=== PATIENT | female | born 1940 | race Caucasian/White ===

== ENCOUNTER → 2016-11-14 | Outpatient (CLI) | payer OTHER, MEDICARE ==
[~2016-11-14] MED LIST: ALBU1AER9 INH; ALBUTEROL INHALER; ASPI81TA28 PO; CARV3.122 PO; CYAN1LOZ; FLAXOIL2 PO; FRS/40 PO; GLUC10007 PO; HMLI SC; LEVO150T22 PO; LISI-729 PO; METF-384 PO; MONT1TAB5 PO; OMEG10007 PO; POTA-335 PO; PRM/45 PO; PYRI100T4 PO; VITA400C15 PO
[2016-11-14 10:12] LABS: ALT/SGPT 19 U/L (12-78); BLOOD UREA NITROGEN 14 mg/dl (7-18); BUN/CREATININE RATIO 20.6 (10-20); CALCIUM 9.3 mg/dl (8.5-10.1); CARBON DIOXIDE 27 mmol/L (21-32); CHLORIDE 105 mmol/L (98-107); CHOLESTEROL 221 mg/dl (0-200); GLUCOSE 145 mg/dl (70-99); SODIUM 141 mmol/L (136-145)
[2016-11-14 10:18] LABS: ESTIMATED AVERAGE GLUCOSE 151 mg/dl; HA1C FLAG Normal (Normal)
[2016-11-14 10:23] LABS: HDL CHOLESTEROL 55 mg/dl; LDL CHOLESTEROL CALCULATED 132 mg/dl; TRIGLYCERIDES 171 mg/dl (0-150); VERY LOW DENSITY LIPOPROT CALC 34 mg/dl
== END | disposition home or self-care (01) ==
LOC: C.LAB1850 09:05
PROVIDERS: ATTEND Family Medicine
DX: E11.9 Type 2 diabetes mellitus without complications (principal); E03.9 Hypothyroidism, unspecified; I10 Essential (primary) hypertension

== ENCOUNTER → 2017-09-16 | Outpatient (CLI) | payer OTHER, MEDICARE ==
[2017-09-16 13:44] LABS: HEMOGLOBIN A1C 7.8 % (4.5-5.6)
[2017-09-16 14:00] LABS: ALT/SGPT 21 U/L (12-78); BLOOD UREA NITROGEN 11 mg/dl (7-18); CALCIUM 8.8 mg/dl (8.5-10.1); CARBON DIOXIDE 28 mmol/L (21-32); GLUCOSE 167 mg/dl (70-99); SODIUM 139 mmol/L (136-145)
[2017-09-16 14:10] LABS: CHOLESTEROL 225 mg/dl (0-200); LDL CHOLESTEROL CALCULATED 141 mg/dl
== END | disposition home or self-care (01) ==
LOC: C.LABPBG 08:24
PROVIDERS: ATTEND Family Medicine
DX: E11.9 Type 2 diabetes mellitus without complications (principal); E03.9 Hypothyroidism, unspecified; I10 Essential (primary) hypertension

== ENCOUNTER → 2017-11-26 | Outpatient (CLI) | payer OTHER, MEDICARE ==
[~2017-11-26] MED LIST changes: +ACET500T58 PO; -ALBU1AER9 INH; -ALBUTEROL INHALER; -CARV3.122 PO; +CMD5 PO; +CYAN100020 PO; -CYAN1LOZ; +DILT-115 PO; +FLAX1CAP11 PO; -FLAXOIL2 PO; -GLUC10007 PO; -HMLI SC; +INSU100I SQ; -LEVO150T22 PO; +LEVO75TA PO; -LISI-729 PO; +MAGNESIUM ZINC; +MCRK20 PO; -MONT1TAB5 PO; +MULT-190 PO; +ONDA4TAB65 PO; -POTA-335 PO; -PRM/45 PO; +PROAIR HFA INH; -PYRI100T4 PO; -VITA400C15 PO; +XLTOPS OPB
[2017-11-26 16:08] LABS: BASO % 0.3 %; BASO ABS # 0.02 K/uL (0-0.2); EOS % 1.3 %; IG# 0.01 K/uL (0.00-0.02); LYMPH % 26.2 %; LYMPH ABS # 1.96 K/uL (1.2-3.4); MEAN CELL VOLUME 91.5 fL (80-100); MEAN CORPUSCULAR HGB CONC 31.7 g/dl (32-36); MEAN PLATELET VOLUME 11.2 fL (7.4-10.4); MONO % 7.8 %; MONO ABS # 0.58 K/uL (0.11-0.59); NEUT % 64.3 %; NEUT ABS # 4.81 K/uL (1.4-6.5); PLATELET COUNT 250 K/uL (130-400); RED CELL DISTRIBUTION WIDTH CV 13.9 % (11.5-14.5); RED CELL DISTRIBUTION WIDTH SD 46.4 fL (36.4-46.3); WHITE BLOOD COUNT 7.48 K/uL (4.8-10.8)
[2017-11-26 16:50] LABS: BLOOD UREA NITROGEN 14 mg/dl (7-18); CALCIUM 9.1 mg/dl (8.5-10.1); CARBON DIOXIDE 26 mmol/L (21-32); CREATININE 0.87 mg/dl (0.60-1.20); GLUCOSE 123 mg/dl (70-99); POTASSIUM 4.1 mmol/L (3.5-5.1); SODIUM 138 mmol/L (136-145)
== END | disposition home or self-care (01) ==
LOC: C.LABSPEC 14:36
PROVIDERS: ATTEND Nurse Practitioner Family
DX: E11.9 Type 2 diabetes mellitus without complications (principal); E83.42 Hypomagnesemia; E87.6 Hypokalemia; I48.91 Unspecified atrial fibrillation; E03.9 Hypothyroidism, unspecified

== ENCOUNTER 2017-12-19 08:18 | Observation (INO) | payer OTHER, MEDICARE ==
[~2017-12-19] VITALS: Ht 160 cm; Wt 91.8 kg
[2017-12-19] VITALS (9 sets, daily range): BP systolic 113–140; BP diastolic 68–89; PULSE 78–126; TEMP 36.4–36.7; O2SAT 95–97; Ht 160 cm; Wt 91.8 kg
[2017-12-19] MEDS ORDERED: APIX1TAB3 PO (10:51)
[2017-12-19] MEDS ORDERED: premarin PO (10:51)
[2017-12-19] MEDS ORDERED: ACETAMINOPHEN 325 MG TAB PO PRN (12:00)
[2017-12-19] MEDS ORDERED: ALUMINUM/MAGNESIUM/SIMETH (MAALOX MAX) 30 ML UDC PO PRN (12:00)
[2017-12-19] MEDS ORDERED: POLYETHYLENE (MIRALAX) 17 GM PACK PO PRN (12:00)
[2017-12-19] MEDS ORDERED: NITROGLYCERIN 0.4 MG SL PER TAB CHARGE SL PRN (12:00)
[2017-12-19] MEDS ORDERED: MAGNESIUM HYDROXIDE SUSP 30 ML UDC PO PRN (12:00)
[2017-12-19] MEDS ORDERED: MoRPHine SULFATE 2 MG/ML CARP IV PRN (12:00)
[2017-12-19] MEDS ORDERED: DILTIAZEM BOLUS / DRIP IV STA (12:15)
[2017-12-19] MEDS ORDERED: ONDANSETRON 4 MG TAB PO PRN (12:15)
[2017-12-19] MEDS ORDERED: ACETAMINOPHEN 500 MG TAB PO PRN (12:15)
[2017-12-19] MEDS ORDERED: DILTIAZEM HCL INJ 125 MG in DEXTROSE 5% 100ML IV PRN (12:30)
[2017-12-19] MEDS ORDERED: ALBUTEROL HFA 8 GM INHALER INH PRN (13:00)
[2017-12-19] MEDS: MAGNESIUM SULFATE 1GM / D5W 100 ML IV SCH ×2 (13:14→14:25)
[2017-12-19] MEDS: APIXABAN 5 MG TAB PO SCH ×2 (13:20→20:28)
[2017-12-19] MEDS: LEVOTHYROXINE 75 MCG TAB PO SCH (13:21)
[2017-12-19] MEDS: FUROSEMIDE 40 MG TAB PO SCH (13:21)
[2017-12-19] MEDS ORDERED: IV FLUIDS COMPLETED PRN (14:45)
--- NOTE | 2017-12-19 15:13 | History and Physical ---
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 She reports eating supper last night 12/18 and becoming very nauseous and having heart palpitations and feeling chest tightness. She describes it as being enought to stop her from finishing her meal and head to bed. She describes the symptoms as being almost identical to her previous RVR episodes. She was unable to sleep and presented to [facility] at 6 am. She was started on diltiazem drip had a troponin drawn which was negative and was transferred direct admission to [facility]. She is currently feeling well and her rate is staying between 90-120. She is here with her daughter. She has no complaints, but is scheduled for a cardioversion later this week. She is curious as to whether that can be done while she's inpatient. Past Medical/Surgical History Medical Problems: (1) Atrial fibrillation with RVR (2) Diabetes (3) Hypertension Surgical Problems: (1) Heart valve replaced (2) Heart valve replaced Social History Smoking Status: Never Smoker Drug Use: none Occupational Status: retired Immunizations History of Influenza Vaccine: Unknown History of Tetanus Vaccine?: Unknown History of Pneumococcal: Unknown History of Hepatitis B Vaccine: Unknown Allergies Coded Allergies: Meperidine (Verified Allergy, Unknown, UNKNOWN, 01/16/15) Moxifloxacin (Unverified Allergy, Unknown, SHORTNESS OF BREATH, 07/14/09) Atorvastatin (Verified Adverse Reaction, Severe, other, 11/09/17) muscle pain and weakness Metoprolol (Unverified Adverse Reaction, Intermediate, other, 11/09/17) "feels extremely weak and sick" Home Medications Scheduled Apixaban (Eliquis), 5 MG PO BID Cyanocobalamin (Vitamin B12), 1 TAB PO DAILY Diltiazem Hcl Ext Rel (Tiazac), 360 MG PO DAILY Fish Oil (Ethel-3), 1 CAP PO DAILY Flaxseed (Linseed) (Flax Seed Oil), 1 CAP PO DAILY Furosemide (Lasix), 40 MG PO DAILY Insulin Lispro (Human) (Humalog), UNITS SQ AC Latanoprost (Latanoprost), 1 DROP OPB HS Levothyroxine Sodium (Synthroid), 75 MCG PO DAILY Metformin Hcl (Glucophage), 1,000 MG PO BID Ocuvite Preservision (Ocuvite Preservision), 1 TAB PO DAILY Potassium Chloride (Klor-Con M20), 20 MEQ PO BID [premarin], 1 TAB PO DAILY Scheduled PRN Acetaminophen (Acetaminophen), 2 TAB PO Q6 PRN for Pain Ondansetron Hcl (Zofran), 4 MG PO TID PRN for Nausea [Proair Hfa], 2 PUFFS INH Q4 PRN for SOB/Wheezing Miscellaneous Medications [magnesium zinc] Review of Systems Constitutional: No fever, No chills, No sweats, No weight loss, No weakness, No fatigue Respiratory: + shortness of breath, + dyspnea on exertion, + dyspnea at rest, No cough, No sputum, No wheezing Cardiovascular: + chest pain, + orthopnea, + palpitations Abdomen: + nausea Musculoskeletal: No joint pain, No muscle pain, No swelling, No calf pain, No problem reported Resident Involvement: Resident Care Provided Care Provided: Adult [facility] Medicine Physical Exam Vital Signs Date Time Temp Pulse Resp B/P (MAP) Pulse Ox O2 Delivery O2 Flow Rate FiO2 12/19/17 11:21 36.5 98 20 122/76 (91) 95 Room Air 12/19/17 10:30 36.4 95 18 140/77 96 Room Air 12/19/17 10:24 90 20 133/89 (104) 97 Room Air General Appearance: WD/WN, no apparent distress Head: normocephalic, atraumatic Eyes: normal inspection, EOMI, sclerae normal Neck: supple, thyroid normal, no JVD, no carotid bruits, trachea midline Respiratory/Chest: chest non-tender, lungs clear, normal breath sounds, no respiratory distress, no accessory muscle use Cardiovascular: no edema, no gallop, no JVD, normal peripheral pulses, + tachycardia, + systolic murmur, + irregularly irregular, + abnormal rate, + abnormal rhythm Abdomen/GI: normal bowel sounds, non tender, soft, no organomegaly Extremities/Musculoskelatal: no calf tenderness, no pedal edema, non-tender Neurologic/Psych: recovery collector II-XII nml as tested, no motor/sensory deficits, alert, normal mood/affect, normal reflexes, oriented x 3 Diagnostics Laboratory Results Results Past 24 Hours Test 12/19/17 10:24 12/19/17 12:34 Range/Units Bedside Glucose 141 70-90 mg/dl Pro-B-Type Natriuretic Peptide 1472 0-1800 pg/ml CXR normal EKG Atrial Fibrillation RVR Impression Assessment and Plan Atrial Fibrillation -IV Diltiazem drip titrating up. -Will convert to oral dose of 360 mg/ day -Considering adding Beta stanley to improve rate control, patient has had three episodes of symptomatic RVR since diagnosis in October -Continuing home eliquis for anticoagulation Hypothyroidism -Continuing home synthroid Hypo magnesemia -4.2 today magnesium oxide tablets given' DVT PPx -On Eliquis Dispo -Plan to D/C tomorrow Advanced Directives Existing Living Will: Yes Existing Power of Bingo Worker: Yes Resuscitation Status VTE Prophylaxis Will order VTE Prophylaxis: No Reason for no VTE drug order: Treatment not indicated Reason no Mechanical VTE Order: Treatment not indicated Note Total Time: Critical Care > 74 minutes Resident Tracking Resident Involvement: Resident Care Provided Care Provided: Adult Hospital Medicine Assessment/Plan Resident Physician Supervision Note: I was present with Dr. Dean during the history and exam. I discussed the case with the resident and agree with the findings and plan as documented in the note. Any exceptions or clarifications are listed here: Pt is a 77 y/o female with extensive medical history including atrial fibrillation, DMII transferred from [place] ED for AF with RVR. Patient reports at present that she is feeling much better - the palpitations she had overnight have resolved, though she is still feeling somewhat tired. She states she is scheduled for outpatient cardioversion with Dr. Spivey this coming week. She endorses no apparent events which would have triggered this arrhythmia and is tolerating the dilt drip and HR in the 90-100s well. On examination, S1/S2 nl IRR/IRR mildly tachycardic. CTAB. Abd NT/ND BS +ve. Trace b/l LE edema. CNII-XII grossly intact. No apparent rashes or lesions. Atrial fibrillation w/ RVR - adjust diltiazem drip to HR in 80s and convert to PO diltiazem likely this evening. Can potentially add metoprolol for further ctrl. DMII - holding home metformin - ISS w/ FSBS. Can add basal if needed.
[2017-12-19] MEDS: DILTIAZEM HCL 180 MG ER CAP PO SCH (20:27)
[2017-12-19] MEDS: MAGNESIUM OXIDE 400 MG TAB PO SCH (20:27)
[2017-12-19] MEDS: POTASSIUM CHLORIDE 20 MEQ TABCR PO SCH (20:28)
[2017-12-19] MEDS ORDERED: LATANOPROST 0.005% OP SOLN 2.5 ML BTL OPB SCH (21:00)
[2017-12-20 03:42] VITALS: BP 114/75; PULSE 75; TEMP 36.5; O2SAT 96
[2017-12-20] MEDS: LEVOTHYROXINE 75 MCG TAB PO SCH (06:12)
[2017-12-20] MEDS: MAGNESIUM OXIDE 400 MG TAB PO SCH (07:56)
[2017-12-20] MEDS: FUROSEMIDE 40 MG TAB PO SCH (07:57)
[2017-12-20] MEDS: APIXABAN 5 MG TAB PO SCH (07:57)
[2017-12-20] MEDS: POTASSIUM CHLORIDE 20 MEQ TABCR PO SCH (07:57)
[2017-12-20] MEDS: DILTIAZEM HCL 180 MG ER CAP PO SCH (07:58)
[2017-12-20 07:59] VITALS: BP 119/66; PULSE 86; TEMP 36.8; O2SAT 97
[2017-12-20 08:08] LABS: CALCIUM 8.5 mg/dl (8.5-10.1); CREATININE 0.75 mg/dl (0.60-1.20); POTASSIUM 3.5 mmol/L (3.5-5.1)
[2017-12-20] MEDS ORDERED: DILTIAZEM HCL 180 MG ER CAP PO SCH (09:00)
[2017-12-20] MEDS ORDERED: CEROVITE ADV FORMULA TAB PO SCH (09:00)
[2017-12-20] MEDS ORDERED: FLAXSEED PO SCH (09:00)
[2017-12-20] MEDS ORDERED: ESTRADIOL 1 MG TAB PO SCH (09:00)
--- NOTE | 2017-12-20 11:19 | Discharge Instructions ---
Discharge Instructions Date of Service Dec 20, 2017. Admission Reason for Admission: Afib W/Rvr Discharge Discharge Diagnosis / Problem: Atrial Fibrillation Discharge Goals Goal(s): Decrease discomfort, Improve disease control Activity Recommendations Activity Limitations: resume your previous activity . Instructions / Follow-Up Instructions / Follow-Up Ms. Mcintyre, You are being discharged for an episode of atrial fibrillation with rapid ventricular response, which is when your atrial fibrillation causes the heart to beat more rapidly than normal resulting in the palpitations and other symptoms that you experienced. You were treated with a titration of diltiazem intravenously which helped to control the rate and have since been resumed on your home dose of diltiazem orally and remained on good rate control for over 12 hours. We are comfortable sending you home on all of your current medications at this time and would advise following up with cardiology for your previously scheduled cardioversion on as an outpatient as planned. Current Hospital Diet Patient's current hospital diet: Diabetes Type 2 Diet Discharge Diet Recommended Diet: Diabetes Type 2 Diet Pending Studies Studies pending at discharge: no Medical Emergencies . Who to Call and When: Medical Emergencies: If at any time you feel your situation is an emergency, please call 911 immediately. . Non-Emergent Contact Non-Emergency issues call your: Primary Care Provider, Director Of Curriculum . Past History Medical & Surgical History: (1) Atrial fibrillation with RVR (2) Hypertension (3) Diabetes . "Provider Documentation" section prepared by Salvador Dean. .
[2017-12-20 11:23] VITALS: BP 119/66; PULSE 86; TEMP 36.8; O2SAT 97
--- NOTE | 2017-12-20 12:37 | Discharge Summary ---
Discharge Summary Date of Service Dec 20, 2017. Discharge Summary Admission Date: Dec 19, 2017 at 10:22 Discharge Date: Dec 20, 2017 Discharge Disposition: Home Principal Diagnosis: Atrial Fibrillation Immunizations: Have You Had Influenza Vaccine: Unknown History of Tetanus Vaccine?: Unknown History of Pneumococcal: Unknown History of Hepatitis B Vaccine: Unknown Medication Reconciliation Continued Medications: Acetaminophen (Acetaminophen) 500 Mg Tab 2 TAB PO Q6 PRN for Pain for 15 Days, #120 TAB Apixaban (Eliquis) 5 Mg Tab 5 MG PO BID, TAB Cyanocobalamin (Vitamin B12) Unknown Strength Tab 1 TAB PO DAILY Diltiazem Hcl Ext Rel (Tiazac) 240 Mg Capcr 360 MG PO DAILY, CAP Fish Oil (Mica-3) 1 Ea Cap 1 CAP PO DAILY, CAP Flaxseed (Linseed) (Flax Seed Oil) 1 Cap Cap 1 CAP PO DAILY Furosemide (Lasix) 40 Mg Tab 40 MG PO DAILY, TAB Insulin Lispro (Human) (Humalog) 100 Unit/Ml Inj UNITS SQ AC PER SLIDING SCALE Latanoprost (Latanoprost) 37 Drops/2.5 Ml Soln 1 DROP OPB HS USE IN AFFECTED EYE Levothyroxine Sodium (Synthroid) 75 Mcg Tab 75 MCG PO DAILY, TAB Metformin Hcl (Glucophage) 1,000 Mg Tab 1000 MG PO BID, TAB Ocuvite Preservision (Ocuvite Preservision) 1 Tab Tab 1 TAB PO DAILY, TAB Ondansetron Hcl (Zofran) 4 Mg Tab 4 MG PO TID PRN for Nausea, TAB Potassium Chloride (Klor-Con M20) 20 Meq Tabcr 20 MEQ PO BID [magnesium zinc] () [premarin] () 1 TAB PO DAILY [Proair Hfa] () 2 PUFFS INH Q4 PRN for SOB/Wheezing Discharge Exam General Appearance: WD/WN, no apparent distress Head: normocephalic, atraumatic Eyes: normal inspection, EOMI, sclerae normal Neck: supple, thyroid normal, no JVD, no carotid bruits, trachea midline Respiratory/Chest: chest non-tender, lungs clear, normal breath sounds, no respiratory distress, no accessory muscle use Cardiovascular: no edema, no gallop, no JVD, normal peripheral pulses, + tachycardia, + systolic murmur, + irregularly irregular, + abnormal rate, + abnormal rhythm Abdomen/GI: normal bowel sounds, non tender, soft, no organomegaly Extremities/Musculoskelatal: no calf tenderness, no pedal edema, non-tender Neurologic/Psych: night nurse II-XII nml as tested, no motor/sensory deficits, alert, normal mood/affect, normal reflexes, oriented x 3 Hospital Course Patient was taken to [facility] where she was started on diltiazem and transferred to [facility] as a direct admit to telemetry. Troponins were trended and negative. She had an elevated BNP, but recent echocardiogram in the last two weeks shows valvular dysfunction. Will need to follow up with cardiology. Treated as follows Atrial Fibrillation -IV Diltiazem drip to get rate under control. -When rate was consistently controlled we transitioned to oral home dose. -Considered adding Beta stanley to regimen to improve rate control, patient has had three episodes of symptomatic RVR since diagnosis in October, but since she is due to be cardioverted on we will postpone that discussion until after the procedure for cardiology -Continuing home eliquis for anticoagulation Hypothyroidism - Continued home synthroid Total Time Spent: Greater than 30 minutes This includes examination of the patient, discharge planning, medication reconciliation, and communication with other providers. Discharge Instructions Please refer to the electronic Patient Visit Report (Discharge Instructions) for additional information. Additional Copies To Joseluis Vela MD; Joseluis Spivey MD; Salvador Dean M.D. Resident Tracking Resident Involvement: Resident Care Provided Care Provided: Adult [facility] Medicine Assessment/Plan Resident Physician Supervision Note: I was present with Dr. Dean during the history and exam. I discussed the case with the resident and agree with the findings and plan as documented in the note. Any exceptions or clarifications are listed here: Pt seen and examined at bedside. No acute events overnight. Feeling at baseline both at rest and with light activity without palpitations. On examination, S1/S2 nl IRR/IRR. CTAB. Trace b/l LE edema, improved from previous. Atrial fibrillation w/ RVR - planned ablation in 4 days as outpatient. Return to PO outpatient regimen. Follow up with cardiology as planned. DMII - restart home metformin
[2017-12-24] MEDS ORDERED: MAGN400T6 PO (06:48)
[2017-12-24] MEDS ORDERED: PSYL0.524 (06:48)
[2017-12-24] MEDS ORDERED: ASPCH81X PO (06:48)
[2017-12-24] MEDS ORDERED: BIMA0.01 OP (06:48)
[2017-12-24] MEDS ORDERED: DILT-119 PO (06:48)
[2017-12-24] MEDS ORDERED: LEVO100T7 PO (06:48)
[2017-12-24] MEDS ORDERED: DILT-115 PO (08:06)
== END 2017-12-20 12:40 | disposition home or self-care (01) ==
LOC: INTOOBSV 10:22 → C.2T 10:22
PROVIDERS: ADMIT Internal Medicine; ATTEND Family Medicine
DX: I48.91 Unspecified atrial fibrillation (principal); E11.9 Type 2 diabetes mellitus without complications; I10 Essential (primary) hypertension; E03.9 Hypothyroidism, unspecified; Z79.01 Long term (current) use of anticoagulants; Z79.899 Other long term (current) drug therapy; Z79.4 Long term (current) use of insulin; Z79.84 Long term (current) use of oral hypoglycemic drugs; Z88.1 Allergy status to other antibiotic agents; Z88.8 Allergy status to other drugs, medicaments and biological substances

== ENCOUNTER → 2017-12-24 | Day surgery (SDC) | payer OTHER, MEDICARE ==
[~2017-12-24] VITALS: Ht 160 cm; Wt 90.0 kg
[~2017-12-24] MED LIST changes: +APIX1TAB3 PO; +ASPCH81X PO; -ASPI81TA28 PO; +BIMA0.01 OP; -CMD5 PO; +DILT-119 PO; +LEVO100T7 PO; +LIDOCAINE HCL 2% 2 ML VIAL (20MG/ML) ONE; +MAGN400T6 PO; +PROPOFOL IV EMULSION 10 MG/ML 20 ML VIAL ONE; +PSYL0.524; +premarin PO
[2017-12-24 06:54] VITALS: Ht 160 cm; Wt 90.0 kg
[2017-12-24 06:55] VITALS: BP 128/74; PULSE 120; TEMP 36.5; O2SAT 97
--- NOTE | 2017-12-24 07:48 | History & Physical Bridge Note ---
H&P Re-Evaluation Bridge Note: I have examined the patient, reviewed the History & Physical and in the interval since the performance of the History & Physical I have noted the following changes of clinical significance: No changes noted
[2017-12-24 07:50] VITALS: BP 129/55; PULSE 116; O2SAT 100
[2017-12-24 07:55] VITALS: BP 123/63; PULSE 86; O2SAT 100
[2017-12-24 08:00] VITALS: BP 118/61; PULSE 86; O2SAT 97
--- NOTE | 2017-12-24 08:00 | Procedure Note ---
Procedure Note Procedure Date Dec 24, 2017. Procedure Description Procedure Name: External electrical cardioversion. Procedure time out: side/site verified, patient ID confirmed, correct procedure Consent obtained: written Time of procedure: 07:50 Performed by: attending Indications: therapeutic Contraindications: none Description: Anesthesia provided by Dr. Harris with (Propofol 50mcg) Pads placed in AP position. Received a single synchronized shock at 200J. Converted to sinus rhythm with HR in 80s. Summary: 1. Successful External electrical cardioversion Complications: none Patient tolerated procedure: well Post-procedure vital signs: reviewed and stable
--- NOTE | 2017-12-24 08:08 | Discharge Instructions ---
Discharge Instructions Procedure Procedure Date: Dec 24, 2017. Reason for Visit: A Fib *Patric W/Anesthesia. Discharge Discharge Date: Dec 24, 2017. Discharge Diagnosis: Atrial fibrillation Last Recorded Wt (Kilograms): 90 Anesthesia Post Anesthesia Instructions: If you have had General Anesthesia or IV Sedation: * Do not drive today. * Resume driving when surgeon permits. * Do not make important decisions or sign legal documents today. * Call surgeon for: 1. Temperature elevations greater than 101 degrees F. 2. Uncontrollable pain. 3. Excessive bleeding. 4. Persistent nausea and vomiting. 5. Medication intolerance (nausea, vomiting or rash). * For nausea and vomiting use only clear liquids such as: tea, soda, bouillon until nausea subsides, then gradually increase diet as tolerated. * If you have any concerns or questions, call your surgeon's office. If physician is unavailable and it is an emergency, call 911 or go to the nearest emergency room. Instructions Activity Recommendations: resume regular activity Recommended Home Diet: resume previous diet Allergies: Coded Allergies: Meperidine (Verified Allergy, Unknown, UNKNOWN, 01/16/15) Moxifloxacin (Unverified Allergy, Unknown, SHORTNESS OF BREATH, 07/14/09) Atorvastatin (Verified Adverse Reaction, Severe, other, 11/09/17) muscle pain and weakness Metoprolol (Unverified Adverse Reaction, Intermediate, other, 11/09/17) "feels extremely weak and sick" Follow Up Follow-up with: As scheduled with Cardiology in 3-4 weeks. Martin Epps Recommendations: Call your doctor if: * Temperature above 101 degrees * Pain not relieved by pain medicine ordered * There is increased drainage or redness from any incision * You have any unanswered questions or concerns. Your Doctors Instructions noted above were prepared by provider Erickson Spivey. Patient Signature Section: Patient Instructions Signature Page Seema Mcintyre Patient (or Guardian) Signature/Date: I have read and understand the instructions given to me by my caregivers. Caregiver/RN/Doctor Signature/Date: The above-named patient and/or guardian has received patient instructions on this date. + Original Patient Signature Page (only) stays with chart. Please make copy for patient.
--- NOTE | 2017-12-24 08:50 | Anesthesiology Progress Note ---
Anesthesia Post Op Note Date & Time Dec 24, 2017 at 08:50 Vital Signs Vital Signs Past 12 Hours Date Time Temp Pulse Resp B/P (MAP) Pulse Ox O2 Delivery O2 Flow Rate FiO2 12/24/17 08:45 76 16 116/56 (76) 96 Room Air 12/24/17 08:30 79 16 102/56 (71) 96 Room Air 12/24/17 08:20 80 16 109/61 (77) 97 Room Air 12/24/17 08:10 16 111/67 (82) 96 Room Air 12/24/17 08:00 86 18 118/61 97 Room Air 12/24/17 07:55 86 18 123/63 100 Nasal Cannula 4 12/24/17 07:50 116 18 129/55 100 Nasal Cannula 4 12/24/17 06:55 36.5 120 16 128/74 (92) 97 Room Air Notes Mental Status: alert / awake / arousable, participated in evaluation Pt Amnestic to Procedure: Yes Nausea / Vomiting: adequately controlled Pain: adequately controlled Airway Patency, RR, SpO2: stable & adequate BP & HR: stable & adequate Hydration State: stable & adequate Anesthetic Complications: no major complications apparent
[2017-12-24 08:55] VITALS: BP 118/58; PULSE 72; O2SAT 97
== END | disposition home or self-care (01) ==
LOC: C.CATH 06:17
PROVIDERS: ATTEND Internal Medicine Interventional Cardiology
DX: I48.91 Unspecified atrial fibrillation (principal); E11.9 Type 2 diabetes mellitus without complications; I10 Essential (primary) hypertension; I25.10 Atherosclerotic heart disease of native coronary artery without angina pectoris; R60.9 Edema, unspecified; E78.5 Hyperlipidemia, unspecified; E03.9 Hypothyroidism, unspecified; H40.9 Unspecified glaucoma; I34.0 Nonrheumatic mitral (valve) insufficiency; I87.2 Venous insufficiency (chronic) (peripheral); Z90.49 Acquired absence of other specified parts of digestive tract; Z90.722 Acquired absence of ovaries, bilateral; Z90.710 Acquired absence of both cervix and uterus; Z95.2 Presence of prosthetic heart valve